=== PATIENT | male | born 1970 | race Hispanic/Latino ===

== ENCOUNTER → 2022-07-08 | Outpatient (CLI) | payer BC ==
[~2022-07-08] MED LIST: IOPAMIDOL 370 MG/ML 100 ML INFUS..BTL INJ ONE; METOPROLOL TARTRATE INJ 1 MG/ML VIAL ONE; NITROGLYCERIN 0.4 MG SUBL ONE; SODIUM CHLORIDE 0.9% 100 ML ONE
[2022-07-08 09:05] LABS: HEMOGLOBIN 15.3 g/dL (14.0-18.0)
[2022-07-08 09:30] LABS: INR 0.92; PARTIAL THROMBOPLASTIN TIME 24.1 seconds (23.8-35.5); PROTHROMBIN TIME 13.2 seconds (11.9-14.5)
[2022-07-08 09:40] LABS: CREATININE, SERUM 0.82 mg/dL (0.72-1.25)
== END ==
LOC: CT 08:28
PROVIDERS: ATTEND Family Medicine
DX: I10 Essential (primary) hypertension (principal); E78.5 Hyperlipidemia, unspecified
CPT/HCPCS: 0502T; 0503T; 36415; 75574; 82565; 84520; 85014; 85049; 85610; 85730; J7050; Q9967